=== PATIENT | female | born 1985 | race Caucasian/White ===

== ENCOUNTER 2024-07-28 07:45 | Emergency (ER) | payer SELFPAY ==
[2024-07-28 07:48] VITALS: BP 180/100
[2024-07-28 08:20] VITALS: BMI 28.1
--- NOTE | 2024-07-28 08:39 | ED.GENMED ---
History of Present Illness
General
Chief Complaint: Abdominal Symptoms
Time Seen by Provider: 07/28/24 08:09
History of Present Illness
History of Present Illness:
38-year-old female without any significant past medical history presenting for left-sided abdominal pain. Reports that she woke up around 2 AM with pain. Describes the pain as burning and sharp. Denies ever having this pain in the past. Does
note history of kidney stones, however feels differently. Denies any urinary complaints. 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 Denies chest pain or difficulty breathing. Does
report nausea and vomiting. Denies fever. She recently started her menstrual cycle. Denies additional acute medical complaints
Phy Exam
Physical Exam
Physical Exam:
General: Well-appearing, no clinical signs of dehydration, nontoxic and in no acute distress
HEENT: protecting airway
Neck: appears supple
CV: Normal heart rate, regular rhythm
Resp: No accessory muscle use, no increased work of breathing, lungs clear to auscultation bilaterally
Abd: Soft and non-distended, generalized nonfocal tenderness, no rebound or guarding
Extremities: No deformities, no swelling
Neuro: alert, no focal neurologic deficit
: deferred
Rectal: deferred
Psych: Normal affect
Skin: Intact
Course
Orders/Labs/Results
Orders:
Orders
07/28/24 08:32
0.9% Sodium Chloride 1000 ml [Nss] 1,000 ml IV BOLUS
Ketorolac [Toradol] 15 mg IV NOW STA
Ondansetron Injectable [Zofran] 4 mg IV NOW STA
07/28/24 08:33
CT Abd/pelvis W Iv Cont Urgent
Comment:
Reason For Exam: diffuse abd pain, L>R
Test Result ONCE
07/28/24 08:35
Complete Blood Count/With Diff Urgent
Comprehensive Metabolic Panel Urgent
HCG, Serum Qualitative Screen Urgent
Lipase Urgent
07/28/24 09:09
Morphine Sulfate 4 mg IV NOW STA
07/28/24 09:32
HYDROmorphone [Dilaudid] 1 mg IV NOW STA
07/28/24 11:12
Tamsulosin [Flomax] 0.4 mg PO NOW STA
07/28/24 11:13
Urinalysis Reflex To Culture Urgent
Date Specimen was Collected: 07/28/24
Time Specimen was Collected: 08:48
Urine Microscopic Reflex Cult Urgent
Urine Culture Urgent
JHOAN Source: U
Specimen Description:
Date Specimen was Collected: 07/28/24
Time Specimen was Collected: 08:48
Abnormal Lab Results
07/28/24 07/28/24
08:35 11:13
WBC 12.7 H 10^3/uL
(4.8-10.8)
Hgb 11.5 L g/dL
(12.0-16.0)
Hct 36.9 L %
(37.0-47.0)
MCV 77.4 L fL
(81.0-99.0)
MCH 24.1 L pg
(27.0-31.0)
MCHC 31.2 L g/dL
(33.0-37.0)
RDW 15.8 H %
(11.5-14.5)
MPV 11.5 H fL
(7.4-10.4)
Absolute Neuts (auto) 11.1 H 10^3/uL
(1.4-6.5)
Absolute Lymphs (auto) 0.9 L 10^3/uL
(1.2-3.4)
Neutrophils % 87.3 H %
(42.2-75.2)
Lymphocytes % 7.2 L %
(20.5-51.1)
Chloride 111 H mmol/L
(98-107)
BUN 19 H mg/dl
(7-17)
Glucose 123 H mg/dl
(70-99)
Ur Occult Blood Reflex 4+ A
(Negative)
Leukocyte Esterase Rfl 3+ A
(Negative)
Urine Albumin (Reflex) 3+ A
(Neg - Trace)
07/28/24 08:35
07/28/24 08:35
Vital Signs
Initial and Last Documented VS:
Initial Vital Signs
Temp Pulse Resp BP Pulse Ox
98.1 F 90 16 180/100 98
07/28/24 07:48 07/28/24 07:48 07/28/24 07:48 07/28/24 07:48 07/28/24 07:48
Last Documented Vital Signs
Temp Pulse Resp BP Pulse Ox
98.1 F 82 18 168/98 99
07/28/24 07:48 07/28/24 09:49 07/28/24 09:49 07/28/24 09:49 07/28/24 09:49
MDM/Problems Addressed
MDM/Problems Addressed:
38-year-old female presenting for generalized abdominal pain with nausea and vomiting. Vital signs are significant for hypertension
On exam patient is resting comfortably, nontoxic. However, generalized abdominal tenderness on palpation, nonfocal. Does note left greater than right. Diverticulitis is a consideration. Some mild tenderness to the right lower quadrant, less
likely appendicitis. Notes history of kidney stones, which is also consideration, however feels that pain is different. Plan for laboratory analysis and CT imaging. IV fluids, Zofran, Toradol administered for symptoms
10:00 - Patient still having pain, given Dilaudid. She now notes some improvement. Labs do show mild leukocytosis. CT is consistent with a 6 mm stone in the left ureter. Pending urinalysis
12:20 - Urine without significant signs of infection. There is blood, in keeping with renal stone and patient being on her menstrual cycle. Patient would prefer not to stay in the hospital. Explained that given the size, may not pass on its own,
will require close interval follow-up with urology. Will prescribe pain medication. Patient started on Flomax. Patient did have some incidental findings on her CAT scan, discussed with patient and CT report provided. Return precautions discussed
and patient verbalized understanding
*Critical Care Note
Total Time (30-74mins, 75-104mins- exclusive of procedures): Not Applicable
ED Attending Note
-
Portions of this chart may have been created with voice recognition software.� Occasional wrong word or��sound alike� substitutions may have occurred due to the inherent limitations of voice recognition software.
Discharge Plan
Departure
Patient Disposition: Home (Routine Discharge)
Date of Disposition: 07/28/24
Time of Disposition: 12:29
Patient with high blood pressure during this ER visit?: Yes
Condition: Good
Discharge Problem:
Calculus of proximal left ureter
Instructions: Kidney stones in adults - ED discharge instructions
Prescriptions:
New
oxycodone 5 mg capsule
5 mg PO Q8H PRN (Reason: Pain) Qty: 10 0RF
tamsulosin [Flomax] 0.4 mg capsule
0.4 mg PO DAILY Qty: 7 0RF
Referrals:
Jay Sabillon MD [Active] -
UNKNOWN - PT DOES,NOT KNOW [Family Provider] -
Activity Restrictions/Additional Instructions:
You were seen in the emergency department for left-sided pain
You were found to have 6 mm stone to the left ureter. You were prescribed Flomax and oxycodone for pain. Please also take Motrin. Please follow-up with a urologist.
Please follow-up closely with your primary care physician.
Return to the emergency department for any worsening of your symptoms including increase in pain, or any development of chest pain, difficulty breathing, abdominal pain with persistent vomiting and inability to tolerate food or liquid by mouth
(concern for dehydration), weakness, headache or confusion, fever greater than 100.4, or any additional symptoms that are concerning to you.
Thank you for choosing [facility].
Interventions
Interventions:
*Risk Screen - Suicide Last Done: 07/28/24 07:48
*Neglect/Abuse Screening Last Done: 07/28/24 07:48
SX-[id number]-Pkedjmczzl Assessment Last Done: 07/28/24 08:20
Discharge Date and Time
Print Language: TELUGU
[2024-07-28] MEDS: NSS 1000 IV (08:40)
[2024-07-28] MEDS: TORADOL 15 MG IV (08:40)
[2024-07-28] MEDS: ZOFRAN 4 MG IV (08:41)
[2024-07-28 08:46] LABS: % Basophils 0.2 % (0-2); % Immature Granulocytes 0.3 % (0-0.5); % Lymphocytes 7.2 % (20.5-51.1); % Neutrophils 87.3 % (42.2-75.2); Absolute Lymphocytes 0.9 10^3/uL (1.2-3.4); Absolute Monocytes 0.6 10^3/uL (0.1-0.6); Absolute Neutrophils 11.1 10^3/uL (1.4-6.5); Hematocrit 36.9 % (37.0-47.0); Hemoglobin 11.5 g/dL (12.0-16.0); Mean Corp Hgb Conc. 31.2 g/dL (33.0-37.0); Mean Corpuscular Hgb 24.1 pg (27.0-31.0); Mean Corpuscular Volume 77.4 fL (81.0-99.0); Mean Platelet Volume 11.5 fL (7.4-10.4); Nucleated Red Blood Cells % 0 %; Platelet Count 253 10^3/uL (130-400); Red Blood Cell Count 4.77 10^6/uL (4.20-5.40); Red Cell Dist. Width 15.8 % (11.5-14.5); White Blood Cell Count 12.7 10^3/uL (4.8-10.8)
[2024-07-28 09:07] LABS: HCG, Serum Qualitative Screen Negative
[2024-07-28 09:10] LABS: ALT (SGPT) 17 U/L (0-35); AST (SGOT) 18 U/L (14-36); Albumin 4.3 g/dl (3.5-5.0); Alkaline Phosphatase 86 U/L (38-126); Blood Urea Nitrogen 19 mg/dl (7-17); Calcium 9.1 mg/dl (8.4-10.2); Carbon Dioxide 25 mmol/L (22-30); Chloride 111 mmol/L (98-107); Estimated Creatinine Clearance 88 ml/min; Glucose 123 mg/dl (70-99); Lipase 149 U/L (23-300); Potassium 4.5 mmol/L (3.5-5.1); Sodium 141 mmol/L (135-145); Total Bilirubin 0.3 mg/dl (0.2-1.3); Total Protein 7.4 g/dl (6.3-8.2); eGFR > 60.00
[2024-07-28] MEDS: MORPHINE SULFATE 4 MG IV (09:14)
[2024-07-28] MEDS: DILAUDID 1 MG IV (09:42)
[2024-07-28 09:49] VITALS: BP 168/98
[2024-07-28] MEDS: FLOMAX 0.4 MG PO (11:18)
[2024-07-28 11:49] LABS: Urine Albumin 3+ (Neg - Trace); Urine Bilirubin Negative (Negative); Urine Character Slightly Cloudy (Clear); Urine Glucose Negative (Negative); Urine Ketone Negative (Negative); Urine Leukocyte 3+ (Negative); Urine Nitrite Negative (Negative); Urine Occult Blood 4+ (Negative); Urine Urobilinogen Negative (Neg - 1+)
[2024-07-28 11:56] LABS: Urine Color Red
[2024-07-28 13:31] LABS: Urine Squamous Cell >30 /LPF (Few)
[2024-07-28 13:34] LABS: Urine Amorphous Seen; Urine Red Blood Cell >100 /HPF (0-2)
[2024-07-28 13:41] LABS: Urine White Cell 50-60 /HPF (0-5)
== END 2024-07-28 13:53 | disposition home or self-care (01) ==
LOC: EMR 07:45
PROVIDERS: EMERGENCY PHYSICIAN Student in an Organized Health Care Education/Training Program
DX: N20.1 Calculus of ureter (principal); R11.2 Nausea with vomiting, unspecified; R03.0 Elevated blood-pressure reading, without diagnosis of hypertension; Z87.442 Personal history of urinary calculi
CPT/HCPCS: 99284; 96375 ×3; 96361; 96374; 74177; 80053; 81003; 81015; 83690; 84703; 85025; 87086; Q9967